=== PATIENT | female | born 1995 | race African-American/Black ===

== ENCOUNTER 2018-10-01 13:51 | Emergency (ER) | payer SELFPAY ==
[~2018-10-01] VITALS: Ht 157.5 cm; Wt 104.5 kg
[2018-10-01 13:56] VITALS: TEMP 97.9
[2018-10-01 14:34] LABS: STREP SCREEN NEGATIVE
[2018-10-01 15:20] VITALS: BP 124/80; PULSE 78
[2018-10-02] MEDS ORDERED: AMOXICILLIN 50500 MG PO (15:34)
== END 2018-10-01 15:22 | disposition home or self-care (01) ==
LOC: COL.ER 13:51
PROVIDERS: Nurse Practitioner
DX: J02.9 Acute pharyngitis, unspecified (principal); F17.210 Nicotine dependence, cigarettes, uncomplicated; Z90.89 Acquired absence of other organs

== ENCOUNTER 2018-10-02 14:21 | Emergency (ER) | payer SELFPAY ==
[~2018-10-02] VITALS: Ht 157.5 cm; Wt 104.5 kg
[2018-10-02 14:33] VITALS: BP 133/73; PULSE 99; TEMP 98.2
[2018-10-02] MEDS ORDERED: AMOXICILLIN 50500 MG PO (15:34)
== END 2018-10-02 15:47 | disposition home or self-care (01) ==
LOC: COL.ER 14:21
DX: J02.9 Acute pharyngitis, unspecified (principal); F17.210 Nicotine dependence, cigarettes, uncomplicated

== ENCOUNTER 2018-10-26 13:21 | Emergency (ER) | payer SELFPAY ==
[~2018-10-26] VITALS: Ht 157.5 cm; Wt 104.5 kg
[~2018-10-26 13:21] MED LIST: AMOXICILLIN 50500 MG PO
[2018-10-26 13:32] VITALS: TEMP 98.4
[2018-10-26 14:26] LABS: COLLECTION METHOD CLEAN CATCH
[2018-10-26 14:35] LABS: MUCOUS Present /lpf; PH 5 (5-8); URINE APPEARANCE Hazy; URINE BACTERIA None Seen /hpf; URINE BILIRUBIN Negative (NEGATIVE); URINE BLOOD Negative (NEGATIVE); URINE COLOR Yellow; URINE GLUCOSE Negative (NEGATIVE); URINE KETONE Negative (NEGATIVE); URINE LEUKOCYTE ESTERASE 2+ (NEGATIVE); URINE NITRATE Negative (NEGATIVE); URINE PROTEIN(semi-quant) 1+ (NEGATIVE); URINE RBC 0-2 /hpf; URINE UROBILINOGEN Negative (NEGATIVE)
[2018-10-26 15:32] VITALS: BP 135/81; PULSE 81
== END 2018-10-26 15:33 | disposition home or self-care (01) ==
LOC: COL.ER 13:21
PROVIDERS: Nurse Practitioner
DX: R20.2 Paresthesia of skin (principal); R07.89 Other chest pain; F17.210 Nicotine dependence, cigarettes, uncomplicated; Z98.890 Other specified postprocedural states

== ENCOUNTER 2018-11-26 09:05 | Emergency (ER) | payer SELFPAY ==
[~2018-11-26] VITALS: Ht 157.5 cm; Wt 112.9 kg
[2018-11-26 09:12] VITALS: BP 140/65
[2018-11-26 09:47] LABS: COLLECTION METHOD CLEAN CATCH
[2018-11-26 09:56] LABS: MUCOUS Present /lpf; PH 7 (5-8); URINE APPEARANCE Cloudy; URINE BACTERIA Rare /hpf; URINE BILIRUBIN Negative (NEGATIVE); URINE BLOOD Negative (NEGATIVE); URINE COLOR Yellow; URINE GLUCOSE Negative (NEGATIVE); URINE KETONE Negative (NEGATIVE); URINE LEUKOCYTE ESTERASE 2+ (NEGATIVE); URINE NITRATE Negative (NEGATIVE); URINE PROTEIN(semi-quant) 1+ (NEGATIVE); URINE UROBILINOGEN Negative (NEGATIVE)
[2018-11-26 10:39] LABS: BASO % 0.5 % (0.0-2.0); EOS # 0.1 (0.0-0.7); EOS % 1.2 % (0-4.0); GRAN # 4.4 (1.4-6.5); GRAN % 54.3 % (42.2-75.2); HEMATOCRIT 40.2 % (37.0-47.0); HEMOGLOBIN 12.9 g/dl (12.5-16.0); LYMPH % 36.9 % (20.0-51.0); MEAN CELL VOLUME 85 fl (80.0-100.0); MEAN CORPUSCULAR HEMOGLOBIN 27 pg (27.0-31.0); MEAN CORPUSCULAR HGB CONC 32 g/dl (33.0-37.0); MEAN PLATELET VOLUME 8.8 fl (7.4-10.4); MONO # 0.6 (0.1-0.6); MONO % 6.9 % (1.7-9.3); PLATELET COUNT 326 K/mm3 (130-400); RED BLOOD COUNT 4.71 M/mm3 (4.10-5.30); REDCELL DISTRIBUTION WIDTH-CV 13.1 % (11.5-14.5)
[2018-11-26 10:52] LABS: ALBUMIN 4.2 gm/dL (3.5-5.0); BILIRUBIN,TOTAL 0.4 mg/dL (0.0-1.0); C-REACTIVE PROTEIN 0.8 mg/dL (0.0-0.9); CALCIUM 9.3 mg/dL (8.4-10.2); CREATININE, serum 0.61 (0.52-1.25); POTASSIUM 3.9 mmol/L (3.4-5.0); TOTAL PROTEIN 7.5 gm/dL (6.4-8.2)
[2018-11-26 12:15] VITALS: PULSE 73; TEMP 98.4
[2018-11-26] MEDS ORDERED: CEFTIN500 MG PO (12:16)
== END 2018-11-26 12:20 | disposition home or self-care (01) ==
LOC: COL.ER 09:05
PROVIDERS: Nurse Practitioner
DX: N39.0 Urinary tract infection, site not specified (principal); Z98.890 Other specified postprocedural states